=== PATIENT | female | born 1975 | race Caucasian/White ===

== ENCOUNTER 2023-05-28 05:47 | Day surgery (SDC) | payer OTHER, SELFPAY ==
[2023-04-18 08:56] VITALS: BMI 28.4
[2023-05-21 08:26] VITALS: BMI 29.1
--- NOTE | 2023-05-28 07:02 | WPDANESEPPF ---
Anes - Initial Pre Proc Eval Procedure: Operation Date: 05/28/23 07:30 Proposed Procedures p Screening Colonoscopy - Trino Aragon MD Date/Time: 05/28/23 07:02 Surgeon: Trino Aragon MD Pre Op Diagnosis: Neoplasm Screening Patient Data Age: 48 Gender: F Height: 1.55 m Weight: 69.5 kg Allergies Allergy/AdvReac Type Severity Reaction Status Date / Time No Known Allergies Allergy Verified 05/28/23 06:34 Home Medications Medication Instructions Recorded Confirmed Type duloxetine 60 mg capsule,delayed 60 mg PO DAILY 05/21/23 05/28/23 History release omeprazole 20 mg capsule,delayed 20 mg PO DAILY 05/21/23 05/28/23 History release trazodone 50 mg tablet 50 mg PO DAILY 05/21/23 05/28/23 History Patient hx anesthesia problems: none Family hx anesthesia problems: none Results Review: All pre-operative results and documents have been reviewed as part of the pre-operative evaluation. 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 Social History Social History Smoking status: Never smoker Alcohol intake: current Substance use: never Substance use type: does not use Living arrangements: with family Spiritual care concerns: No Anes - Eval Final PreProcedure Day of Procedure 05/28/23 07:02 Patient weight: overweight Heart: regular rate and rhythm Lungs: clear to auscultation Airway: Mallampati scale class II Neurological: alert and oriented Last oral intake: >/= 8 hours ASA classification: III Emergent: no Anesthetic plan: proceed Anesthesia type and monitoring: general GIVS and standard monitoring Results Review: All pre-operative results and documents have been reviewed as part of the pre-operative evaluation. Informed Consent: The patient's anesthetic plan and its attendant risks and benefits were discussed with the patient/family/POA. Questions were solicited and answers provided to the satisfaction of the patient/family/POA.
[2023-05-28 07:04] VITALS: BP 131/89; PULSE 88; RESP 16; TEMP 36.8; O2SAT 98
[2023-05-28] MEDS: LACTATED RINGERS 1,000 ML 150 ML IV CONT (07:26)
--- NOTE | 2023-05-28 07:27 | PM.HPGS ---
History of Present Illness History of Present Illness Consent: Risks, benefits, and alternatives have been discussed and questions answered. Patient agrees to proceed with procedure. Chief complaint: Neoplasm Screening Narrative: Yolanda Patel is a 48 year old female here for first screening colonoscopy Review of Systems Constitutional: Constitutional: Denies headache(s) and Denies weakness Eyes: Eyes: Denies blurry vision ENT: Reports Normal hearing present, Denies headache(s) and Denies neck pain Cardiovascular: Cardiovascular: Denies chest pain and Denies dyspnea Respiratory: Respiratory: Denies dyspnea Gastrointestinal: Gastrointestinal: Reports no additional gastrointestinal complaints Genitourinary: Genitourinary: Denies dysuria Musculoskeletal: Musculoskeletal: Denies neck pain Integumentary/Breasts: Skin/Breast: Denies dry skin Neurologic: Reports Normal hearing present, Denies headache(s) and Denies weakness Psychiatric: Psychiatric: Denies anxiety Endocrine: Endocrine: Denies change in body appearance Hematologic/Lymphatic: Hematologic/Lymphatic: Denies easy bleeding Allergic/Immunologic: Allergic/Immunologic: Denies urticaria PMF Past Medical History Medical History (Updated 05/28/23 @ 07:27 by Trino Aragon MD) Colon cancer screening GERD (gastroesophageal reflux disease) Leiomyosarcoma 2003, surgical resection Seizure x1 within last 10 years, no meds 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 Social History Social History Smoking status: Never smoker Alcohol intake: current Substance use: never Substance use type: does not use Living arrangements: with family Spiritual care concerns: No Meds Home Medications and Allergies Home Medications Medication Instructions Recorded Confirmed Type duloxetine 60 mg capsule,delayed 60 mg PO DAILY 05/21/23 05/28/23 History release omeprazole 20 mg capsule,delayed 20 mg PO DAILY 05/21/23 05/28/23 History release trazodone 50 mg tablet 50 mg PO DAILY 05/21/23 05/28/23 History Allergies Allergy/AdvReac Type Severity Reaction Status Date / Time No Known Allergies Allergy Verified 05/28/23 06:34 Vital Signs Vital Signs - 24 hr 05/28/23 07:04 Temperature 98.2 F Pulse Rate 88 Respiratory Rate 16 Blood Pressure 131/89 Pulse Oximetry 98 Oxygen Delivery Room Air Exam Const: General: comfortable and no acute distress HENMT: Face/Nose/Sinus: Normal nares present Eyes: General: appearance normal, both eyes and all related structures Neck: Neck: no JVD Resp: Auscultation: clear to auscultation bilaterally Cardio: Rate: regular rate Rhythm: regular rhythm GI: Inspection: non-distended GI Palp: Yes Soft to palpation Skin: General skin exam: normal color Neuro: General: gait normal Speech: normal speech Extrem: General: normal to inspection Psych: Mental Status: mental status grossly normal Assessment and Plan Assessment and plan (1) Colon cancer screening: Code(s): Z12.11 - Encounter for screening for malignant neoplasm of colon Status: Acute Assessment and Plan: colonoscopy
[2023-05-28 07:48] VITALS: BP 106/65; PULSE 87; RESP 14; O2SAT 97
[2023-05-28 07:58] VITALS: BP 113/84; PULSE 82; RESP 16; O2SAT 100
[2023-05-28 08:08] VITALS: BP 128/82; PULSE 74; RESP 15; O2SAT 100
--- NOTE | 2023-05-28 13:47 | WPDANESPN ---
Anes - Prog Note Post-Op Date/Time: 05/28/23 13:47 Cardiovascular status: normal Respiratory status: normal Airway patency: baseline Mental status: baseline Post-Op hydration status: normal Vital Signs: Last Vital Signs Temp 36.8 C 05/28/23 07:04 Pulse 74 05/28/23 08:08 Resp 15 05/28/23 08:08 BP 128/82 05/28/23 08:08 Pulse Ox 100 05/28/23 08:08 O2 Del Method Room Air 05/28/23 08:08 Pain Score (VAS): 0 I/O: Intake & Output 05/27/23 05/28/23 05/28/23 23:59 07:59 15:59 Intake Total 100 150 Balance 100 150 Post-procedural complaints: none Patient Feedback: Patient satisfied with anesthetic care. Other Findings: Patient vital signs back to baseline. Patient denies nausea and vomiting. Patient's pain under control. Patient OK for discharge.
== END 2023-05-28 08:14 | disposition home or self-care (01) ==
PROVIDERS: Visit Provider Internal Medicine Gastroenterology
PROC: 0DJD8ZZ Inspection of Lower Intestinal Tract, Via Natural or Artificial Opening Endoscopic (ICD-10-PCS; CPT 45378; principal; 2023-05-28 07:30)
DX: Z12.11 Encounter for screening for malignant neoplasm of colon (principal); K63.89 Other specified diseases of intestine
CPT/HCPCS: 45378

== ENCOUNTER 2023-11-16 13:15 | Outpatient (CLI) | payer OTHER, SELFPAY ==
--- NOTE | ~2023-11-16 | MM_ITS ---
EXAMINATION: MM screening aruna BI w vicente HISTORY: Screening mammogram TECHNIQUE: Craniocaudal and mediolateral oblique 3-D tomosynthesis images were obtained and synthetic 2-D images were generated. CAD analysis was submitted and interpreted. COMPARISON: 02/01/2018 bilateral screening mammogram BREAST PARENCHYMAL COMPOSITION: The breasts are heterogeneously dense, which may obscure small masses . FINDINGS: Occasional benign calcifications. There is no evidence of suspicious mass, calcification, o r architectural distortion to suggest malignancy in either breast. There has been no suspicious inter krystal change. IMPRESSION: 1. No mammographic evidence of malignancy. 2. Recommend routine screening mammography in one year. BI-RADS Category 2: Benign finding(s). Reviewed, dictated and finalized at location B.
== END 2023-11-16 13:16 ==
LOC: MICIMG 13:18
PROVIDERS: Visit Provider Nurse Practitioner
DX: Z12.31 Encounter for screening mammogram for malignant neoplasm of breast (principal)
CPT/HCPCS: 77063; 77067